=== PATIENT | female | born 1935 | race Caucasian/White ===

== ENCOUNTER 2020-09-14 07:58 | Emergency (ER) | payer MEDICARE ==
[~2020-09-14 07:58] MED LIST: MOTRIN600 MG PO
[2020-09-14 09:31] LABS: BASOPHIL 0.2 % (0-2); EOSINOPHIL 0 % (0-7); LYMPHOCYTE 12.4 % (15-48); MCH 31.8 pg (25.0-31.0); MCHC 34.1 g/dL (32.0-36.0); MCV 93.4 fL (78.0-100.0); MPV 10.6 fL (6.0-9.5); NEUTROPHIL 81.1 % (41-80); NRBC 0; PLT 184 K/uL (150-400); RBC 4.71 M/uL (4.20-5.40); RDW 12.7 % (11.5-14.0); WBC 9.7 K/uL (4.0-10.5)
[2020-09-14 09:43] LABS: BILIRUBIN NEGATIVE (NEGATIVE); BLOOD 2+ Ery/uL (NEGATIVE); CLARITY CLEAR (CLEAR); COLOR YELLOW (YELLOW); GLUCOSE (U) NORMAL (NORMAL); LEUKOCYTES NEGATIVE Leu/uL (NEGATIVE); NITRITE NEGATIVE (NEGATIVE); PROTEIN NEGATIVE (NEGATIVE); UROBILINOGEN 0.2 mg/dL (0.2-1.0); pH 6.5 (5.0-9.0)
[2020-09-14 09:50] LABS: BUN/CREAT RATIO (CALC) 19.4 RATIO; CREATININE 0.62 mg/dL (0.51-0.95); POTASSIUM 3.8 mmol/L (3.5-5.1)
[2020-09-14 09:51] LABS: BACTERIA 2+
[2020-09-14] MEDS ORDERED: MACROBID100 MG PO (10:15)
== END 2020-09-14 10:44 | disposition home or self-care (01) ==
LOC: FER 07:58
PROVIDERS: Emergency Medicine
DX: T14.8XXA Other injury of unspecified body region, initial encounter (principal); N39.0 Urinary tract infection, site not specified; M25.511 Pain in right shoulder; M25.551 Pain in right hip; M25.561 Pain in right knee; W06.XXXA Fall from bed, initial encounter
CPT/HCPCS: 36415; 73030; 73502; 73564; 80048; 81001; 85025; 93005